=== PATIENT | male | born 1955 | race Caucasian/White ===

== ENCOUNTER 2024-05-17 17:06 | Emergency (ER) | payer OTHER, SELFPAY ==
[2024-05-17] MEDS ORDERED: Bacitracin 1 PK ONE (19:13)
== END 2024-05-17 19:58 ==
LOC: NAV ERS 17:06
DX: S00.83XA Contusion of other part of head, initial encounter (principal); S80.01XA Contusion of right knee, initial encounter; S50.311A Abrasion of right elbow, initial encounter; M25.511 Pain in right shoulder; W18.30XA Fall on same level, unspecified, initial encounter
CPT/HCPCS: 70450; 72125